=== PATIENT | female | born 1970 | race Caucasian/White ===

== ENCOUNTER 2018-12-28 05:30 | Inpatient (IN) | payer MEDICARE ==
[2018-12-25 14:59] LABS: BASOPHILS % 0.3 % (0.0-1.0); EOSINOPHILS # (AUTO) 0.2 (0.0-0.4); EOSINOPHILS % 3.7 % (0.0-6.0); HEMATOCRIT 30.9 % (34.2-44.1); HEMOGLOBIN 10.1 g/dL (12.0-16.0); LYMPHOCYTES % 31.7 % (18.0-39.1); MEAN CORPUSCULAR HEMOGLOBIN 27.8 pg (28-32); MEAN CORPUSCULAR HGB CONC 32.7 g/dL (31-35); MEAN CORPUSCULAR VOLUME 85.1 fL (81-99); MONOCYTES # (AUTO) 0.4 (0.2-0.8); MONOCYTES % 6.9 % (4.4-11.3); NEUTROPHILS # (AUTO) 3.5 (2.1-6.9); NEUTROPHILS % 56.4 % (38.7-80.0); PLATELET COUNT 215 x10e3/uL (140-360); RED BLOOD COUNT 3.63 x10e6/uL (3.6-5.1); RED CELL DISTRIBUTION WIDTH 14.9 % (11.7-14.4)
[2018-12-25 15:21] LABS: ANION GAP 15.3 mmol/L (8-16); CALCIUM 9.2 mg/dL (8.4-10.2); CREATININE, SERUM 3.19 mg/dL (0.57-1.11); POTASSIUM 4.3 mmol/L (3.5-5.1)
--- NOTE | 2018-12-25 15:26 | Diagnostic Imaging Report ---
EXAMINATION: PA and lateral views of the chest. COMPARISON: None CLINICAL HISTORY: Preoperative evaluation for gastric sleeve surgery DISCUSSION: Lines/tubes: None. Lungs: The lungs are well inflated and clear. No evidence of pneumonia or pulmonary edema. Pleura: No pleural effusion or pneumothorax. Heart and mediastinum: Cardiomegaly. Bones and soft tissues: No acute bony abnormalities. IMPRESSION: Cardiomegaly without decompensation Signed by: Dr. Robbin Sheth M.D. on 12/25/2018 3:23 PM
[~2018-12-28] VITALS: Ht 162.6 cm; Wt 120.7 kg
[~2018-12-28 05:30] MED LIST: AMITRIPTYLINE H10 MG PO; ARANESP100 MCG/1 SC; ASPIR 8181 MG PO; CETIRIZINE HCL10 MG PO; COLESTIPOL HCL1 GM PO; FLONASE; IRON PO; LEVEMIR100 UNIT/1 SC; LISINOPRIL2.5 MG PO; NOVOLOG100 UNITS1 SC; PROAIR HFA INH8.5 GM INH; ZANAFLEX2 M1 PO; ZANTAC300 MG PO
--- OUTSIDE RECORDS SUMMARY | 2018-12-28 05:39 | XMS REPORT ---
Author Author [facility] Address Unknown Phone Unavailable Care Team Providers Care Locomotive Firer Name Role Phone Shady GALLAGHER Unavailable Unavailable Problems This patient has no known problems. Allergies, Adverse Reactions, Alerts This patient has no known allergies or adverse reactions. Medications This patient has no known medications. Results Test Description Test Time Test Comments Text Results Atomic Results Result Comments CHEST 2 VIEWS 2018-12-25 15:21:00 [place] [address] Patient Name: KUNAL SANDS I MR #: [id number] : 1970 Age/Sex: 48/F Req #: [id number] Adm Physician: Ordered by: ÓSCAR GALLAGHER MD Report #: [id number] Location: OR Room/Bed: Procedure: [id number] DX/CHEST 2 VIEWS Exam Date: Exam Time: REPORT STATUS: Signed EXAMINATION: PA and lateral views of the chest. COMPARISON: None CLINICAL HISTORY: Preoperative evaluation for gastric sleeve surgery DISCUSSION: Lines/tubes: None. Lungs: The lungs are well inflated and clear. No evidence of pneumonia or pulmonary edema. Pleura: No pleural effusion or pneumothorax. Heart and mediastinum: Cardiomegaly. Bones and soft tissues: No acute bony abnormalities. IMPRESSION: Cardiomegaly without decompensation Signed by: Dr. Shaji Hernández M.D. on 12/25/2018 3:23 PM Dictated By: SHAJI HERNÁNDEZ MD 1523 Transcribed By: MOHINI on 12/25/18 1523 COPY TO: ÓSCAR GALLAGHER MD
--- OUTSIDE RECORDS SUMMARY | 2018-12-28 05:39 | XMS REPORT | Clinical Summary ---
Author Author [facility] Address Unknown Phone Unavailable Care Team Providers Care Credit And Collections Representative Name Role Phone PCP Unavailable Allergies Not on File Medications Not on file Active Problems Not on file Social History Date Tobacco Use Types Packs/Day Years Used Never Assessed Sex Assigned at Date Recorded Not on file Industry Job Start Date Occupation Not on file Not on file Not on file Travel End Travel History Travel Start No recent travel history available. Last Filed Vital Signs Not on file Plan of Treatment Health Maintenance Due Date Last Done Comments CERVICAL CANCER SCREENING 1990 INFLUENZA VACCINE 06/10/2018 Results Not on fileafter 12/27/2017 Insurance Payer Benefit Subscriber ID Type Phone Address Plan / Group MEDICAID MEDICAID xxxxxxxxx Medicaid Advance Directives Patient has advance care planning documents on file. For more information, feng stallworth contact: Cooper Medrano [address] [place] [address]
[2018-12-28] MEDS ORDERED: LEVOFLOXACIN 500MG/D5W 100ML 100 ML IV ONE (06:54)
[2018-12-28] MEDS ORDERED: INSULIN REGULAR, HUMAN 100 UNIT/1 ML 3ML VIAL ONE ×2 (07:25→11:43)
[2018-12-28] MEDS ORDERED: BUPIVACAINE 0.5%/EPI 30 ML SDV INJ ONE (07:41)
[2018-12-28] MEDS ORDERED: BENZOCAINE/TETRACAINE/BUTAMBEN AERO SPRAY 56 GM CAN ONE (07:45)
[2018-12-28] MEDS ORDERED: ALBUTEROL SULF 0.083% NEB SOLN 3 ML NEB ONE (09:48)
[2018-12-28] MEDS ORDERED: MORPHINE SULFATE INJ 4 MG/ML INJ 1ML ONE ×3 (10:42→12:45)
--- NOTE | 2018-12-28 11:05 | Diagnostic Imaging Report ---
Examination: Single AP view of the chest. COMPARISON: 12/25/2018 INDICATION: Hypotension DISCUSSION: Examination is limited due to patient body habitus. The lungs are well-inflated. No focal consolidation, pleural effusion, or pneumothorax. Stable mild enlargement of the cardiac silhouette without overt pulmonary edema. No acute osseous abnormality. IMPRESSION: Mild cardiomegaly without pulmonary edema, unchanged relative to 12/25/2018 when accounting for differences in technique. Signed by: Dr. Juan Cantu M.D. on 12/28/2018 11:01 AM
--- NOTE | 2018-12-28 11:39 | Operative Report ---
DATE OF PROCEDURE: December 28, 2018 PREOPERATIVE DIAGNOSES 1. Morbid obesity, body mass index of 45. 2. Stage 3 chronic kidney disease. 3. Hypertension. 4. Type 2 diabetes mellitus. 5. Obstructive sleep apnea. POSTOPERATIVE DIAGNOSES 1. Morbid obesity, body mass index of 45. 2. Stage 3 chronic kidney disease. 3. Hypertension. 4. Type 2 diabetes mellitus. 5. Obstructive sleep apnea. 6. Fatty liver disease. PREOPERATIVE INDICATIONS: Treat disease, prevent complications related to comorbid conditions of obesity. PROCEDURE PERFORMED: Laparoscopic vertical sleeve gastrectomy. ANESTHESIA: General. SIGNAL WORKER HELPER: Kory De La [facility] Companion (needed due to complexity of case). FLUIDS: 900 mL crystalloid. ESTIMATED BLOOD LOSS: 30 mL. DRAINS: None. COMPLICATIONS: None. SPECIMENS: Partial stomach. GRAFTS: None. FINDINGS 1. Normal upper GI anatomy. 2. Hepatomegaly. 3. Negative intraoperative EGD leak test. PROCEDURAL DETAILS: The patient was brought to the operating room and was intubated under general endotracheal anesthesia. Of note, it took quite some time for general anesthesia intubation due to an enlarged oropharyngeal mass the patient had from before. She was then sterilely prepped and draped in the usual fashion. She was positioned supine, both arms abducted and all pressure points appropriately padded. A preprocedure pause was performed identifying the patient and the use of perioperative antibiotics, intended procedure, and the staff surgeon. Access was gained into the peritoneal cavity via a 5-mm incision in the left subcostal space using a Veress needle. Four additional trocars were placed in the standard position. An additional trocar was placed in the left lower quadrant due to an enlarged omentum. I mobilized the greater curvature of the stomach by ligating the gastroepiploic, short gastric, and posterior short gastric vessels from about 4 cm proximal to the pyloric valve to the left estephania of the diaphragm using a [place] LigaSure device. I then inserted an adult-size endoscope along the lesser curvature of the stomach to be used as a bougie. The greater curvature of the stomach was resected with multiple firings of an Ethicon stapling device using Seamguard reinforcements. The first 2 firings were green loads. The following 4 firings were blue loads. The last firing of the blue load was without the Seamguard. Once the specimen was completely detached from the sleeve, it was removed through the right periumbilical port site and the port site was closed with 0 Vicryl suture using the Tian-Keo technique. We submerged the sleeve under saline and no leaks were identified. We then confirmed hemostasis, removed the liver retractor, and desufflated the abdomen. The trocars were removed. The incision sites were closed with 4-0 Monocryl suture in subcuticular fashion. Bupivacaine 0.25% was used both at the preperitoneal incision sites. Dermabond dressings were applied. The patient tolerated the procedure well. All surgical sponge and instrument counts were correct. Type of wound is type 2, clean-contaminated. Job#: [id number] RANDY
--- NOTE | 2018-12-28 12:45 | Consultation ---
DATE OF CONSULTATION: December 28, 2018 REASON FOR CONSULTATION: Medical management. HISTORY OF PRESENT ILLNESS: This is a 48-year-old woman, who was admitted to [facility] with a diagnosis of extreme obesity. Patient today underwent successful elective laparoscopic sleeve gastrectomy. Surgery was performed by her surgeon, named Dr. Fabio Keller. The patient had blood work done 3 days prior to the surgery and was found to have a hemoglobin 10.1 g/dL but she does have a history of anemia secondary to chronic kidney disease. Patient's BUN and creatinine are 53 and 3.19 respectively. The patient voiced no complaints at this time, but they did give her nebulizer treatments because of wheezing. REVIEW OF SYSTEMS GENERAL: Weight has been stable. No fever or chills. HEENT: No headache. No vision changes. CARDIOVASCULAR/RESPIRATORY: Patient states at times she has a chronic cough secondary to asthmatic bronchitis. GI: Denies any abdominal pain at this time. : To catheter has been removed. NEUROMUSCULAR: Denies any weakness and numbness. PAST MEDICAL HISTORY 1. Type 2 diabetes mellitus. 2. Stage 4 chronic kidney disease. 3. Hypertensive heart disease. 4. Extreme obesity. 5. Chronic asthmatic bronchitis. 6. Second-hand tobacco smoke exposure. 7. GERD. 8. Irritable bowel syndrome. 9. Anemia secondary to chronic kidney disease. FAMILY HISTORY: Multiple family members with hypertension, type 2 diabetes mellitus. ALLERGIES 1. PENICILLIN. 2. SULFA. 3. HYDROMORPHONE. 4. PLAQUENIL. 5. LATEX. SURGICAL HISTORY 1. section 3 times. 2. Laparoscopic cholecystectomy. 3. Right foot surgery. 4. Laparoscopic sleeve gastrectomy today. 5. Abdominal hernia repair with mesh placement. 6. Tonsillectomy. SOCIAL HISTORY: This woman is , lives with her . She is disabled. No history of tobacco or alcohol use. HOME MEDICATIONS 1. Albuterol inhaler 2 puffs q.i.d. as needed. 2. Amitriptyline 10 mg daily. 3. Aspirin 81 mg a day. 4. Zyrtec 10 mg at bedtime. 5. Colestid 1 g t.i.d. 6. Darbepoetin 100 mcg subcutaneous daily. 7. NovoLog insulin 20 units subcutaneous t.i.d. 8. Lisinopril 2.5 mg daily. 9. Ranitidine 300 mg daily. 10. Tizanidine 2 mg once daily as needed for muscle spasm. 11. Flonase 1 spray at each nostril every night. 12. Iron once daily. PHYSICAL EXAMINATION GENERAL: She is somnolent but arousable. She is fully oriented. She is currently in postanesthesia care unit. VITAL SIGNS: She is 5 feet 4 inches, weight is 260 pounds, BMI 45. Blood pressure is 160/80, pulse is 68, respiratory rate is 18, oxygen saturation 100% on 4 liters oxygen. Temperature is 97.8. INTEGUMENT: Skin is warm and dry. No pallor, jaundice or diaphoresis. HEENT: Anicteric sclerae with moist mucous membranes. NECK: Supple. CARDIOVASCULAR: Distant heart sounds. Regular rate and rhythm with a systolic ejection murmur 2/6 intensity. LUNGS: No rales, no rhonchi, no wheezing. ABDOMEN: Obese. No bowel sounds are appreciated at this time. The patient's laparoscopic incisions are currently dressed. EXTREMITIES: No edema or deformity. She has sequential compression devices in place on her bilateral lower legs. NEUROLOGIC: Intact. No gross deficits appreciated. DIAGNOSES 1. Status post laparoscopic sleeve gastrectomy. 2. Extreme obesity, body mass index of 45. 3. Type-2 diabetes mellitus. 4. Hypertensive heart disease. 5. Stage 4 chronic kidney disease. 6. Anemia secondary to chronic kidney disease. 7. Chronic asthmatic bronchitis. PLANS 1. Continue nebulized bronchodilators and oxygen as needed. 2. Order chest x-ray. 3. Follow up BUN and creatinine. 4. Intravenous fluids. 5. Blood pressure control. 6. Blood glucose control. I spent 45 minutes in the care of this patient. I would like to thank Dr. Keller for this generous consult. Job#: [id number] TA MTDAllen
[2018-12-28] MEDS: ALBUTEROL/IPRATROPIUM 3 ML NEB NEB SCH ×3 (13:00→23:30)
--- OUTSIDE RECORDS SUMMARY | 2018-12-28 14:14 | XMS REPORT | Clinical Summary ---
Author Author [facility] Address Unknown Phone Unavailable Care Team Providers Care Bleach Machine Operator Name Role Phone PCP Unavailable Allergies Not [...] more information, feng stallworth contact: Cooper Medrano [address] [place] [address]
[2018-12-28 15:20] VITALS: BP 136/81
[2018-12-28] MEDS: SODIUM CHLORIDE 0.9% 1000ML 1,000 ML IV SCH ×3 (15:34→23:52)
[2018-12-28] MEDS ORDERED: LISINOPRIL 2.5 MG TAB PO PRN (15:45)
[2018-12-28] MEDS ORDERED: ALBUTEROL SULFATE HFA 8GM INHALATION AEROSOL INH PRN (15:45)
[2018-12-28] MEDS ORDERED: NON-FORMULARY MEDICATION (Ranitidine Hcl (Zantac) 300 MG) PO SCH (15:45)
[2018-12-28] MEDS ORDERED: TIZANIDINE HCL 2 MG PO SCH (15:45)
[2018-12-28 15:53] VITALS: BP 136/81
[2018-12-28] MEDS ORDERED: FAMOTIDINE 20 MG TAB PO PRN (16:00)
[2018-12-28] MEDS ORDERED: TIZANIDINE HCL 4 MG TAB PO PRN (16:00)
[2018-12-28] MEDS: SCOPOLAMINE 1.5 MG PATCH TOP SCH (16:09)
[2018-12-28] MEDS: MORPHINE SULFATE INJ 4 MG/ML INJ 1ML IV PRN ×3 (16:09→23:52)
[2018-12-28] MEDS: ONDANSETRON HCL INJ 2MG/ML 2ML 2 MG/ML VIAL IV PRN (16:09)
[2018-12-28 16:36] VITALS: BP 136/81
[2018-12-28] MEDS: INSULIN LISPRO 100 UNIT/1 ML 3ML VIAL SQ SCH (16:48)
[2018-12-28] MEDS ORDERED: INSULIN DETEMIR U SC SCH (17:00)
[2018-12-28] MEDS ORDERED: MIDAZOLAM HCL 2 MG/2 ML VIAL ONE (17:58)
[2018-12-28] MEDS ORDERED: KETAMINE HCL INJ 50 MG/ML 10 ML VIAL ONE (17:58)
[2018-12-28] MEDS ORDERED: FENTANYL CITRATE/PF 100MCG/2 ML INJ ONE (17:58)
[2018-12-28] MEDS ORDERED: DEXAMETHASONE SOD PHOS INJ 4 MG/ML VIAL ONE (18:21)
[2018-12-28] MEDS ORDERED: ROCURONIUM BROMIDE 10 MG/ML 5ML VIAL ONE (18:21)
[2018-12-28] MEDS ORDERED: ACETAMINOPHEN 1000 MG/100 ML IV ONE (18:21)
[2018-12-28] MEDS ORDERED: SUCCINYLCHOLINE 200 MG/10 ML SYR ONE (18:21)
[2018-12-28] MEDS ORDERED: SEVOFLURANE INHAL SOLN 250 ML PEN BTL ONE (18:21)
[2018-12-28] MEDS ORDERED: PROPOFOL IV EMULSION 10 MG/ML 20 ML VIAL ONE (18:21)
[2018-12-28] MEDS ORDERED: LIDOCAINE HCL 2% LOCAL INJ 5 ML SDV VIAL INJ ONE (18:21)
[2018-12-28] MEDS ORDERED: ONDANSETRON HCL INJ 2MG/ML 2ML 2 MG/ML VIAL ONE (18:21)
[2018-12-28] MEDS ORDERED: ATROPINE SULFATE 1 MG/ML VIAL ONE (18:21)
[2018-12-28 20:00] VITALS: BP 156/72
[2018-12-28] MEDS ORDERED: ENOXAPARIN SOD INJ 40 MG/0.4 ML SYR SC SCH ×2 (20:00)
[2018-12-28] MEDS: ENOXAPARIN 30 MG/0.3 ML SYR SC SCH (20:07)
[2018-12-28 20:10] VITALS: BP 156/72
[2018-12-28] MEDS ORDERED: NON-FORMULARY MEDICATION (Cetirizine Hcl 10 MG) PO SCH (21:00)
[2018-12-28] MEDS: LORATADINE 10 MG TAB PO SCH (21:00)
[2018-12-28] MEDS ORDERED: FLONASE SCH (21:00)
[2018-12-28] MEDS: COLESTIPOL HCL 1 G TAB PO SCH ×2 (21:00→22:00)
[2018-12-28] MEDS: AMITRIPTYLINE HCL 10 MG TAB PO SCH (21:00)
[2018-12-28] MEDS: INSULIN GLARGINE 100 UNITS/ML VIAL SQ SCH (21:00)
[2018-12-29] VITALS (7 sets, daily range): BP systolic 130–149; BP diastolic 60–74
[2018-12-29] MEDS: MORPHINE SULFATE INJ 4 MG/ML INJ 1ML IV PRN ×2 (05:08→22:07)
[2018-12-29 06:23] LABS: BASOPHILS % 0.3 % (0.0-1.0); EOSINOPHILS # (AUTO) 0.1 (0.0-0.4); EOSINOPHILS % 0.9 % (0.0-6.0); HEMATOCRIT 27.5 % (34.2-44.1); HEMOGLOBIN 8.6 g/dL (12.0-16.0); LYMPHOCYTES # (AUTO) 1.8 (1.0-3.2); LYMPHOCYTES % 28.6 % (18.0-39.1); MEAN CORPUSCULAR HEMOGLOBIN 27.4 pg (28-32); MEAN CORPUSCULAR HGB CONC 31.3 g/dL (31-35); MEAN CORPUSCULAR VOLUME 87.6 fL (81-99); MONOCYTES # (AUTO) 0.5 (0.2-0.8); MONOCYTES % 8.4 % (4.4-11.3); NEUTROPHILS # (AUTO) 3.9 (2.1-6.9); NEUTROPHILS % 61.2 % (38.7-80.0); PLATELET COUNT 190 x10e3/uL (140-360); RED BLOOD COUNT 3.14 x10e6/uL (3.6-5.1)
[2018-12-29] MEDS ORDERED: HYDROCODONE/APAP 7.5MG-325MG 1 EA TAB PO PRN (06:45)
[2018-12-29] MEDS: ALBUTEROL/IPRATROPIUM 3 ML NEB NEB SCH ×4 (07:00→23:30)
[2018-12-29 07:11] LABS: ALBUMIN 2.6 g/dL (3.5-5.0); ALBUMIN/GLOBULIN RATIO 0.7 (0.8-2.0); ANION GAP 16.1 mmol/L (8-16); CALCIUM 8.6 mg/dL (8.4-10.2); CREATININE, SERUM 3.46 mg/dL (0.57-1.11); MAGNESIUM 1.8 MG/DL (1.3-2.1); PHOSPHORUS 5.3 MG/DL (2.3-4.7)
[2018-12-29 07:21] LABS: POTASSIUM 5.1 mmol/L (3.5-5.1)
[2018-12-29] MEDS: SODIUM CHLORIDE 0.9% 1000ML 1,000 ML IV SCH ×3 (07:34→23:34)
[2018-12-29] MEDS: INSULIN LISPRO 100 UNIT/1 ML 3ML VIAL SQ SCH ×3 (08:36→16:29)
[2018-12-29] MEDS: INSULIN GLARGINE 100 UNITS/ML VIAL SQ SCH ×2 (08:36→21:53)
[2018-12-29] MEDS: ASPIRIN 81 MG CHEW TAB PO SCH (08:37)
[2018-12-29] MEDS: FERROUS SULFATE 325 MG TAB PO SCH (08:37)
[2018-12-29] MEDS: FLUTICASONE PROPIONATE NASAL SPRAY NS SCH ×2 (08:37→21:53)
[2018-12-29] MEDS ORDERED: EPOETIN ALFA 10000 UNIT/ML VIAL SC NR (09:45)
[2018-12-29] MEDS: COLESTIPOL HCL 1 G TAB PO SCH ×3 (11:04→21:50)
[2018-12-29] MEDS: ENOXAPARIN 30 MG/0.3 ML SYR SC SCH (21:47)
[2018-12-29] MEDS: AMITRIPTYLINE HCL 10 MG TAB PO SCH (21:52)
[2018-12-29] MEDS: LORATADINE 10 MG TAB PO SCH (21:52)
[2018-12-30] VITALS (8 sets, daily range): BP systolic 129–164; BP diastolic 58–76
[2018-12-30] MEDS: SODIUM CHLORIDE 0.9% 1000ML 1,000 ML IV SCH ×2 (02:32→07:34)
[2018-12-30 06:14] LABS: BASOPHILS % 0.3 % (0.0-1.0); EOSINOPHILS # (AUTO) 0.2 (0.0-0.4); EOSINOPHILS % 3.6 % (0.0-6.0); HEMATOCRIT 26.3 % (34.2-44.1); HEMOGLOBIN 7.9 g/dL (12.0-16.0); LYMPHOCYTES # (AUTO) 1.7 (1.0-3.2); LYMPHOCYTES % 27.5 % (18.0-39.1); MEAN CORPUSCULAR HEMOGLOBIN 27.3 pg (28-32); MONOCYTES # (AUTO) 0.5 (0.2-0.8); MONOCYTES % 8.2 % (4.4-11.3); NEUTROPHILS # (AUTO) 3.6 (2.1-6.9); NEUTROPHILS % 58.9 % (38.7-80.0); PLATELET COUNT 160 x10e3/uL (140-360); RED BLOOD COUNT 2.89 x10e6/uL (3.6-5.1); RED CELL DISTRIBUTION WIDTH 15.6 % (11.7-14.4)
[2018-12-30 06:46] LABS: ALBUMIN 2.6 g/dL (3.5-5.0); ALBUMIN/GLOBULIN RATIO 0.8 (0.8-2.0); ANION GAP 12.2 mmol/L (8-16); CALCIUM 8.3 mg/dL (8.4-10.2); CREATININE, SERUM 3.43 mg/dL (0.57-1.11)
[2018-12-30] MEDS: ALBUTEROL/IPRATROPIUM 3 ML NEB NEB SCH ×2 (07:00→19:25)
[2018-12-30 07:14] LABS: POTASSIUM 5.2 mmol/L (3.5-5.1)
[2018-12-30] MEDS: INSULIN LISPRO 100 UNIT/1 ML 3ML VIAL SQ SCH ×4 (08:00→16:35)
[2018-12-30] MEDS: ASPIRIN 81 MG CHEW TAB PO SCH (08:21)
[2018-12-30] MEDS: FERROUS SULFATE 325 MG TAB PO SCH (08:31)
[2018-12-30] MEDS: INSULIN GLARGINE 100 UNITS/ML VIAL SQ SCH ×2 (08:33→21:00)
[2018-12-30] MEDS: COLESTIPOL HCL 1 G TAB PO SCH ×3 (08:33→21:37)
[2018-12-30] MEDS: ONDANSETRON HCL INJ 2MG/ML 2ML 2 MG/ML VIAL IV PRN (09:55)
[2018-12-30] MEDS ORDERED: FUROSEMIDE INJ 10 MG/ML 4 ML VIAL IV ONE (10:15)
[2018-12-30] MEDS ORDERED: ACETAMINOPHEN 325 MG TAB PO PRN (10:45)
--- NOTE | 2018-12-30 11:31 | Diagnostic Imaging Report ---
EXAM: CHEST SINGLE (PORTABLE) DATE: 12/30/2018 10:09 AM INDICATION: CHF COMPARISON: Chest x-ray, 12/28/2018 FINDINGS: Lines and tubes: None Stable mild enlargement of the cardiac silhouette. No focal pulmonary opacity, pleural effusion or pneumothorax. Mild linear atelectasis noted at the right lung base. Upper abdomen unremarkable. No acute bony abnormality. IMPRESSION: No evidence for acute disease. Stable mild cardiomegaly. Signed by: Dr. Alok rOona M.D. on 12/30/2018 11:28 AM
[2018-12-30] MEDS: TRAMADOL HCL 50 MG TAB PO PRN (18:50)
[2018-12-30] MEDS: LORATADINE 10 MG TAB PO SCH (21:37)
[2018-12-30] MEDS: ENOXAPARIN 30 MG/0.3 ML SYR SC SCH (21:37)
[2018-12-30] MEDS: AMITRIPTYLINE HCL 10 MG TAB PO SCH (21:37)
[2018-12-30] MEDS: FLUTICASONE PROPIONATE NASAL SPRAY NS SCH (21:37)
[2018-12-31] VITALS (8 sets, daily range): BP systolic 128–184; BP diastolic 60–81
[2018-12-31] MEDS: ALBUTEROL/IPRATROPIUM 3 ML NEB NEB SCH ×4 (01:00→20:00)
[2018-12-31 05:49] LABS: BASOPHILS % 0.4 % (0.0-1.0); EOSINOPHILS # (AUTO) 0.1 (0.0-0.4); EOSINOPHILS % 2.5 % (0.0-6.0); HEMATOCRIT 26.2 % (34.2-44.1); HEMOGLOBIN 7.7 g/dL (12.0-16.0); LYMPHOCYTES # (AUTO) 1.8 (1.0-3.2); LYMPHOCYTES % 34.4 % (18.0-39.1); MEAN CORPUSCULAR HGB CONC 29.4 g/dL (31-35); MEAN CORPUSCULAR VOLUME 91.9 fL (81-99); MONOCYTES # (AUTO) 0.5 (0.2-0.8); NEUTROPHILS # (AUTO) 2.6 (2.1-6.9); NEUTROPHILS % 50.9 % (38.7-80.0); PLATELET COUNT 160 x10e3/uL (140-360); RED BLOOD COUNT 2.85 x10e6/uL (3.6-5.1); RED CELL DISTRIBUTION WIDTH 15.4 % (11.7-14.4)
[2018-12-31] MEDS: TRAMADOL HCL 50 MG TAB PO PRN ×2 (05:54→22:03)
[2018-12-31 06:11] LABS: ALBUMIN 2.6 g/dL (3.5-5.0); ALBUMIN/GLOBULIN RATIO 0.7 (0.8-2.0); ANION GAP 14.9 mmol/L (8-16); CALCIUM 8.8 mg/dL (8.4-10.2); CREATININE, SERUM 4.23 mg/dL (0.57-1.11); POTASSIUM 4.9 mmol/L (3.5-5.1)
[2018-12-31 07:42] LABS: BAND NEUTROPHILS % (MANUAL) 1 %; BLAST CELLS % MANUAL 1; EOSINOPHILS % (MANUAL) 2 % (0-7); HYPOCHROMASIA MODERATE; LYMPHOCYTES % (MANUAL) 24 % (19-48); METAMYELOCYTES % (MANUAL) 2 % (0-0); MONOCYTES % (MANUAL) 3 % (3.4-9.0); NEUTROPHILS % (MANUAL) 64 % (40-74); PLATELET ESTIMATE ADEQUATE; PLATELET MORPHOLOGY COMMENT NORMAL; RBC MORPHOLOGY COMMENT NORMAL
[2018-12-31] MEDS: INSULIN LISPRO 100 UNIT/1 ML 3ML VIAL SQ SCH (08:00)
[2018-12-31] MEDS: SCOPOLAMINE 1.5 MG PATCH TOP SCH (08:36)
[2018-12-31] MEDS: FERROUS SULFATE 325 MG TAB PO SCH (08:37)
[2018-12-31] MEDS: COLESTIPOL HCL 1 G TAB PO SCH ×3 (08:37→21:47)
[2018-12-31] MEDS: ASPIRIN 81 MG CHEW TAB PO SCH (08:37)
[2018-12-31] MEDS: INSULIN GLARGINE 100 UNITS/ML VIAL SQ SCH ×3 (08:37→21:48)
[2018-12-31] MEDS: SODIUM CHLORIDE 0.9% 1000ML 1,000 ML IV SCH ×2 (13:03→21:47)
[2018-12-31] MEDS ORDERED: SODIUM CHLORIDE 0.9% 250ML 250 ML ONE ×2 (13:35→18:28)
[2018-12-31] MEDS: AMITRIPTYLINE HCL 10 MG TAB PO SCH (21:47)
[2018-12-31] MEDS: FLUTICASONE PROPIONATE NASAL SPRAY NS SCH (21:47)
[2018-12-31] MEDS: LORATADINE 10 MG TAB PO SCH (21:47)
[2018-12-31] MEDS: ONDANSETRON HCL INJ 2MG/ML 2ML 2 MG/ML VIAL IV PRN (22:07)
[2019-01-01] VITALS (7 sets, daily range): BP systolic 142–171; BP diastolic 67–80
[2019-01-01] MEDS: ALBUTEROL/IPRATROPIUM 3 ML NEB NEB SCH ×3 (01:00→14:10)
[2019-01-01] MEDS: SODIUM CHLORIDE 0.9% 1000ML 1,000 ML IV SCH ×2 (05:16→12:45)
[2019-01-01] MEDS: ONDANSETRON HCL INJ 2MG/ML 2ML 2 MG/ML VIAL IV PRN (05:19)
[2019-01-01 06:14] LABS: BASOPHILS % 0.7 % (0.0-1.0); EOSINOPHILS # (AUTO) 0.2 (0.0-0.4); EOSINOPHILS % 3.5 % (0.0-6.0); HEMATOCRIT 32.5 % (34.2-44.1); HEMOGLOBIN 10.1 g/dL (12.0-16.0); LYMPHOCYTES # (AUTO) 1.3 (1.0-3.2); LYMPHOCYTES % 28.5 % (18.0-39.1); MEAN CORPUSCULAR HEMOGLOBIN 27.4 pg (28-32); MEAN CORPUSCULAR HGB CONC 31.1 g/dL (31-35); MEAN CORPUSCULAR VOLUME 88.1 fL (81-99); MONOCYTES # (AUTO) 0.4 (0.2-0.8); MONOCYTES % 8.6 % (4.4-11.3); NEUTROPHILS # (AUTO) 2.6 (2.1-6.9); NEUTROPHILS % 56.9 % (38.7-80.0); PLATELET COUNT 170 x10e3/uL (140-360); RED BLOOD COUNT 3.69 x10e6/uL (3.6-5.1); RED CELL DISTRIBUTION WIDTH 15.2 % (11.7-14.4)
[2019-01-01 06:37] LABS: ALBUMIN 2.9 g/dL (3.5-5.0); ALBUMIN/GLOBULIN RATIO 0.7 (0.8-2.0); CALCIUM 9.3 mg/dL (8.4-10.2); CREATININE, SERUM 3.87 mg/dL (0.57-1.11)
[2019-01-01] MEDS ORDERED: ONDANSETRON HCL INJ 2MG/ML 2ML 2 MG/ML VIAL IV PRN (07:00)
[2019-01-01] MEDS: FERROUS SULFATE 325 MG TAB PO SCH (08:41)
[2019-01-01] MEDS: COLESTIPOL HCL 1 G TAB PO SCH ×2 (08:41→16:17)
[2019-01-01] MEDS: INSULIN GLARGINE 100 UNITS/ML VIAL SQ SCH (08:51)
[2019-01-01] MEDS ORDERED: METOCLOPRAMIDE HCL 10 MG/2ML VIAL IV NR (09:30)
[2019-01-01] MEDS ORDERED: ULTRAM50 MG PO (15:27)
--- NOTE | 2019-01-05 10:34 | Discharge Summary ---
ADMIT DIAGNOSES: 1. Extreme obesity, body mass index of 45, complicating underlying hypertension and type 2 diabetes mellitus. 2. Type 2 diabetes mellitus. 3. Hypertensive heart disease. 4. Stage 4 chronic kidney disease. 5. Anemia secondary to chronic kidney disease. 6. Chronic asthmatic bronchitis. DISCHARGE DIAGNOSES: 1. Status post laparoscopic sleeve gastrectomy. 2. Acute on chronic renal failure, resolved. 3. Stage 3 chronic kidney disease. 4. Type 2 diabetes mellitus. 5. Hypertensive heart disease. 6. Chronic asthmatic bronchitis. 7. Obstructive sleep apnea. 8. Extreme obesity, BMI is 45, complicating underlying diabetes mellitus and hypertension. 9. Acute on chronic anemia, requiring blood transfusion (2 units of packed red blood cells). HOSPITAL COURSE: This is a 48-year-old woman, who was initially admitted to [facility] with diagnosis of extreme obesity, BMI of 45, that was complicating underlying type 2 diabetes mellitus and hypertension as well as her obstructive sleep apnea. During this hospitalization, the patient underwent successful laparoscopic sleeve gastrectomy, which was performed by her general surgeon, namely Dr. Keller. Unfortunately, postoperatively the patient's renal function worsened. Just prior to admission, the patient was found to have a BUN and creatinine of 53 and 3.19 respectively. The patient does have a known history of stage 4 chronic kidney disease. The patient's BUN and creatinine did get as high as 51 and 4.23 respectively. On day of discharge, the patient's BUN and creatinine was 49 and 3.87 respectively. Also during this hospitalization, the patient was transfused 2 units of packed red blood cells. The patient's discharge was delayed for 2 days because of her acute on chronic renal failure and because of acute anemia. The patient's condition on discharge was stable. DISCHARGE MEDICATIONS: 1. Levemir insulin 30 units subcutaneous twice a day. 2. Ferrous sulphate 325 mg daily. 3. Tramadol 50 mg q.6 hours p.r.n. pain. 4. Flonase 1 spray in each nostril daily. 5. Loratadine 10 mg at bedtime. 6. Amitriptyline 10 mg at bedtime. The following medications were discontinued during this hospitalization, Colestid and lisinopril. FOLLOWUP INSTRUCTIONS: The patient is instructed to follow up with her steaming machine operator within 1 week. The patient is instructed to follow up with Dr. Keller, her bariatric surgeon within 10 to 14 days. MD ALEJANDRO Crowder/ANANYA /[id number]
== END 2019-01-01 18:05 | disposition home or self-care (01) | DRG 620 ==
LOC: OR 05:30 → PACU V 13:43 → MED/SURG 15:10
PROVIDERS: ADMIT Internal Medicine; ATTEND Internal Medicine
PROC: 0DB64Z3 Excision of Stomach, Percutaneous Endoscopic Approach, Vertical (ICD-10-PCS; principal; 2018-12-28 07:30)
PROC: 30233N1 Transfusion of Nonautologous Red Blood Cells into Peripheral Vein, Percutaneous Approach (ICD-10-PCS; 2018-12-31)
DX: E66.01 Morbid (severe) obesity due to excess calories (principal); N18.4 Chronic kidney disease, stage 4 (severe); N25.81 Secondary hyperparathyroidism of renal origin; Z68.42 Body mass index [BMI] 45.0-49.9, adult; E11.22 Type 2 diabetes mellitus with diabetic chronic kidney disease; I12.9 Hypertensive chronic kidney disease with stage 1 through stage 4 chronic kidney disease, or unspecified chronic kidney disease; G47.33 Obstructive sleep apnea (adult) (pediatric); K76.0 Fatty (change of) liver, not elsewhere classified; J44.9 Chronic obstructive pulmonary disease, unspecified; Z79.4 Long term (current) use of insulin; D63.1 Anemia in chronic kidney disease; N99.0 Postprocedural (acute) (chronic) kidney failure; J45.909 Unspecified asthma, uncomplicated; K21.9 Gastro-esophageal reflux disease without esophagitis; E78.2 Mixed hyperlipidemia; R09.02 Hypoxemia; Z88.5 Allergy status to narcotic agent; Z88.0 Allergy status to penicillin; Z88.2 Allergy status to sulfonamides; Z88.8 Allergy status to other drugs, medicaments and biological substances; Z91.040 Latex allergy status
CPT/HCPCS: 36415; 71045; 71046; 80048; 80053; 81025; 82948; 83735; 83880; 84100; 85025; 86850; 86900; 86920; 93005; 94640; 97139; J0461; J1100; J1650; J1815; J1940; J1956; J2001; J2250; J2270; J2405; J2765; J7030; J7050; P9016; Q4081